=== PATIENT | male | born 1960 | race Caucasian/White ===

== ENCOUNTER 2024-12-23 14:08 | Emergency (ER) | payer OTHER ==
[~2024-12-23] VITALS: Ht 172.7 cm; Wt 68.0 kg
[2024-12-23] MEDS: SODIUM CHLORIDE 0.9% (SEPSIS BOLUS) IV ONE (15:08)
[2024-12-23 15:16] LABS: BG BASE EXCESS 0.4 mmol/L (-2.0-3.0); BG CARBOXYHEMOGLOBIN 0.5 % (0.5-1.5); BG DEOXYHEMOGLOBIN 5.6 % (0.0-5.0); BG FRACTION INSPIRED OXYGEN 21; BG METHEMOGLOBIN 0.3 % (0.5-1.5); BG OXYGEN SATURATION 94.4 % (94.0-98.0); BG OXYHEMOGLOBIN 93.6 % (94.0-98.0); BG PCO2 28.3 mmHg (35.0-48.0); BG PH 7.508 (7.350-7.450); BG PO2 66.2 mmHg (83.0-108.0); BG SAMPLE SITE RIGHT BRACHIAL; BG TOTAL HEMOGLOBIN 15.9 g/dL (13.5-17.5); BG VENT MODE ROOM AIR
[2024-12-23 15:26] LABS: CHLORIDE 105 mEq/L (98-107); HEMATOCRIT. 42.5 % (42.0-52.0); HEMOGLOBIN. 14.6 g/dL (14.0-18.0); MEAN CORPUSCULAR HEMOGLOBIN 32.8 pg (28.0-32.0); MEAN CORPUSCULAR HGB CONC 34.5 g/dL (31.0-37.0); MEAN CORPUSCULAR VOLUME 95.1 fL (80.0-94.0); PLATELET 255 x1000/uL (130-400); POTASSIUM 3.9 mEq/L (3.5-5.1); RED BLOOD CELL COUNT 4.47 mill/uL (4.7-6.1); RED CELL DISTRIBUTION WIDTH 13.2 % (11.6-14.6); SODIUM 137 mEq/L (136-145); WHITE BLOOD COUNT 16.4 x1000/uL (4.5-11.0)
[2024-12-23 15:27] LABS: CALCIUM 9.5 mg/dL (8.7-10.4); CARBON DIOXIDE 26 mEq/L (21-32)
[2024-12-23 15:30] LABS: D-DIMER 0.46 mg/L FEU (<0.50); INR 1.1; PROTHROMBIN TIME 11.3 sec (9.6-11.0)
[2024-12-23 15:31] LABS: DIFFERENTIAL COMMENT 1
[2024-12-23 15:32] LABS: CREATININE 1.5 mg/dL (0.6-1.3); GLUCOSE 107 mg/dL (70-105); UREA NITROGEN BLOOD 17 mg/dL (9-23)
[2024-12-23 15:33] LABS: TROPONIN I HIGH SENSITIVITY 17 ng/L (3.0-53)
[2024-12-23 15:34] LABS: ALANINE AMINOTRANSFERASE 15 IU/L (10-49); ALBUMIN 4.3 g/dL (3.2-4.8); ASPARTATE AMINOTRANSFERASE 15 IU/L (<34); BILIRUBIN DIRECT 0.4 mg/dL (<=3.0); BILIRUBIN TOTAL 1.6 mg/dL (0.1-1.0); PROTEIN TOTAL 6.8 g/dL (6.0-8.3)
[2024-12-23] MEDS: AZITHROMYCIN 500MG/250ML 250 ML IV NR (16:15)
[2024-12-23] MEDS ORDERED: DOXY100C5 MT (16:59)
[2024-12-23] MEDS ORDERED: AMOX1TAB16 MT (16:59)
[2024-12-23 17:02] LABS: PLATELET ESTIMATE NORMAL
[2024-12-23] MEDS: CEFTRIAXONE 1GM/50ML 50 ML IV NR (17:06)
[2024-12-23 18:55] VITALS: BP 110/76; PULSE 91; RESP 20; TEMP 36.9; O2SAT 98
[2024-12-23] MEDS ORDERED: IOHEXOL-350 100 ML BOTTLE ONE (23:49)
== END 2024-12-23 19:15 | disposition home or self-care (01) ==
LOC: ER 14:23
DX: J18.9 Pneumonia, unspecified organism (principal); I10 Essential (primary) hypertension; I44.7 Left bundle-branch block, unspecified; R05.9 Cough, unspecified; R06.02 Shortness of breath
CPT/HCPCS: 99285; 96365; 71275; 71045; 96367; 96361; 80076; 80048; 83605; 85025; 85379; 85610; 87040; 84484; 84145; 82805; 82375; 93005; 36600; Q9967; J0456; J0696; J7030; A4606